=== PATIENT | male | born 1945 | race Two or more races ===

== ENCOUNTER 2020-05-12 09:30 | Inpatient (IN) | payer OTHER ==
[~2020-05-12] VITALS: Ht 157.5 cm; Wt 79.4 kg
[2020-05-12] MEDS ORDERED: HYDROCHLOROTHIA25 MG PO (16:07)
[2020-05-12] MEDS ORDERED: ADULT LOW DOSE81 M1 PO (16:08)
[2020-05-12] MEDS ORDERED: MYSOLINE50 MG PO (16:08)
[2020-05-12] MEDS ORDERED: GLUCOSAMINE-CH1 EAC9 PO (16:09)
[2020-05-12] MEDS ORDERED: PROTECT PLUS S1 EACH PO (16:10)
[2020-05-17] MEDS ORDERED: CHLORTHALIDONE25 MG PO (07:57)
[2020-05-17] MEDS ORDERED: K2 PLUS D3 TAB1 EACH PO (07:57)
[2020-05-19] MEDS ORDERED: PERCOCET 5-3251 EACH PO (10:21)
[2020-05-19] MEDS ORDERED: CIPRO500 MG PO (10:21)
[2020-05-19] MEDS ORDERED: ELIQUIS2.5 MG PO (10:21)
== END 2020-05-19 20:29 | DRG 470 ==
LOC: SURG 05-17 05:30 → O/R 05-17 05:30 → SURH 05-17 07:00 → SURG 05-17 11:39
PROVIDERS: ADMIT Orthopaedic Surgery; ATTEND Orthopaedic Surgery
PROC: 0SRC0J9 Replacement of Right Knee Joint with Synthetic Substitute, Cemented, Open Approach (ICD-10-PCS; principal; 2020-05-17 07:00)
DX: M17.11 Unilateral primary osteoarthritis, right knee (principal); D62 Acute posthemorrhagic anemia; I10 Essential (primary) hypertension; E66.9 Obesity, unspecified; Z68.31 Body mass index [BMI] 31.0-31.9, adult